=== PATIENT | male | born 2000 | race American Indian/Alaskan Native ===

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

== ENCOUNTER 2018-02-20 15:31 | Emergency (ER) | payer OTHER ==
--- NOTE | 2018-02-23 10:38 | CR ---
INDICATION: Trauma, fist against the wall. RIGHT HAND: Three views of the right hand were obtained 02/20/2018 and compared with 12/29/2017, again revealing a boxers type fracture of the distal metaphysis and shaft of the 5th metacarpal. Periosteal new bone formation is noted, compatible with interval progress in healing. There is questionably slightly more angulation medially at the fracture site. Study was otherwise unremarkable. IMPRESSION: Healing boxers fracture of the 5th metacarpal with continued deformity and perhaps slightly increased medial angulation at the fracture site. [facility]
--- NOTE | 2018-02-23 11:17 | ER ---
DATE SEEN: 02/20/2018 TIME SEEN: The patient was seen at 1550 hours. HISTORY OF PRESENT ILLNESS: This is a 17-year-old who struck the wall with his hand. He fractured his fifth distal metacarpal (boxer's fracture) on 12/26/2017. Now has recurrent pain, swelling, and tenderness. The patient denies other health problems. ALLERGIES: No allergies. No diabetes or other serious illnesses, hospitalizations, or injury. He denies chemical dependency. PHYSICAL EXAMINATION: VITAL SIGNS: Blood pressure 116/65, respirations 17, pulse 62, oxygen saturation 100%, temperature 37 degrees centigrade, 72.5 kilos, 20.5 kilos/m squared. GENERAL: The patient is alert, asthenic young man, in minimal distress. HEENT: Negative. LUNGS: Clear. HEART: Without murmur. ABDOMEN: Soft. No discomfort. EXTREMITIES: Right dominant hand MP joint #5 and #4 had mild swelling, loss of the prominence of the bony knuckle on the fifth MP joint. He can move his finger readily. No deformity of the finger, but he has deformity and loss of the metacarpal phalangeal joint prominence. The patient has no dysesthesia. The patient has x-ray that demonstrates angulation 30 degrees of the distal healed metacarpal and has new fracture across this. ASSESSMENT: Recurrent fracture, right fifth metacarpal secondary to trauma. PLAN: Follow up with Orthopedics. An aluminum splint was placed. Reassure. Avoid using his fist as a bargaining point for his anger. /[id number] BRYAN/OLGA LIDIA
== END 2018-02-20 17:14 | disposition home or self-care (01) ==
LOC: FB.ED 15:31
DX: S62.306D Unspecified fracture of fifth metacarpal bone, right hand, subsequent encounter for fracture with routine healing (principal); X58.XXXD Exposure to other specified factors, subsequent encounter
CPT/HCPCS: 73130-RT; 99283

== ENCOUNTER 2021-11-03 09:16 | Emergency (ER) | payer OTHER ==
[2021-11-03] MEDS ORDERED: Ondansetron 4 MG/2 ML SDV IVPUSH ONE (09:44)
[2021-11-03] MEDS ORDERED: Sodium Chloride 0.9% 1,000 ML IV ONE (09:44)
[2021-11-03] MEDS ORDERED: Ketorolac 30 MG/ML SDV IVPUSH ONE (09:44)
[2021-11-03 11:37] LABS: CORONAVIRUS COVID-19 NAA NEGATIVE (NEGATIVE)
[2021-11-03] MEDS ORDERED: methylPREDNISolone Sodium Succinate 125 MG/2 ML SDV IVPUSH ONE (14:08)
[2021-11-03] MEDS ORDERED: Acetaminophen 500 MG Tab PO ONE (14:08)
== END 2021-11-03 14:35 | disposition home or self-care (01) ==
LOC: FB.ED 09:16
DX: M79.10 Myalgia, unspecified site (principal); T40.495A Adverse effect of other synthetic narcotics, initial encounter; E86.0 Dehydration; F12.90 Cannabis use, unspecified, uncomplicated; Z20.822 Contact with and (suspected) exposure to COVID-19
CPT/HCPCS: 0240U; 36415; 80053; 80307; 81001; 82550; 85025; 86140; 96374; 96375; 99283-25; 99284; A9270-GY; J1885; J2405; J2930; J7030